=== PATIENT | male | born 1990 | race Caucasian/White ===

== ENCOUNTER → 2019-05-28 | Emergency (ER) | payer SELFPAY ==
[~2019-05-28] VITALS: Ht 180.3 cm; Wt 72.6 kg
[~2019-05-28] MED LIST: CLEOCIN HCL300 MG PO; NORCO 7.5-3251 EACH PO
== END ==
LOC: ED 09:48
DX: R05 Cough (principal)

== ENCOUNTER 2020-04-03 12:47 | Emergency (ER) | payer OTHER ==
[~2020-04-03] VITALS: Ht 180.3 cm; Wt 67.1 kg
[2020-04-03] MEDS ORDERED: BACTRIM DS TAB1 EACH PO ×2 (14:49→14:50)
== END 2020-04-03 15:02 | disposition home or self-care (01) ==
LOC: ED 12:47
DX: L03.211 Cellulitis of face (principal); L03.116 Cellulitis of left lower limb; L97.829 Non-pressure chronic ulcer of other part of left lower leg with unspecified severity; L98.499 Non-pressure chronic ulcer of skin of other sites with unspecified severity; F17.200 Nicotine dependence, unspecified, uncomplicated; Z88.2 Allergy status to sulfonamides; Z88.0 Allergy status to penicillin
CPT/HCPCS: 99283